=== PATIENT | male | born 1960 | race Caucasian/White ===

== ENCOUNTER 2019-10-07 18:49 | Emergency (ER) | payer MEDICAID, OTHER ==
[~2019-10-07] VITALS: Ht 185.4 cm; Wt 92.3 kg
--- NOTE | 2019-10-07 21:21 | NUR ---
PT WITH FAMILY AT BEDSIDE. LABS ORDERED AND VASCULAR US ORDERED.
--- NOTE | 2019-10-07 21:35 | NUR ---
PT PLACED IN GOWN, VSS.
[2019-10-07 21:46] LABS: D-DIMER 2.08 MG/L FEU (0-0.50)
--- NOTE | 2019-10-07 22:36 | NUR ---
PT STILL WAITING FOR VASCULAR US. THEY WERE PAGED 1 HR AGO AND REPORTED TO BE IN ROUTE. 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
--- NOTE | 2019-10-07 22:57 | NUR ---
VASCULAR REPORTED TO NOW BE IN ROUTE TO HOSPITAL.
--- NOTE | 2019-10-07 23:13 | NUR ---
VASCULAR US TECH AT BEDSIDE. PT WITH HR 112, OTHERWISE VSS.
[2019-10-07 23:14] VITALS: BP 116/91
[2019-10-07] MEDS ORDERED: TRAM50TA2 PO (23:52)
== END 2019-10-08 00:10 | disposition home or self-care (01) ==
LOC: ER 18:53
DX: S96.811A Strain of other specified muscles and tendons at ankle and foot level, right foot, initial encounter (principal); I10 Essential (primary) hypertension; F17.200 Nicotine dependence, unspecified, uncomplicated; Z86.19 Personal history of other infectious and parasitic diseases; Z88.0 Allergy status to penicillin; Z79.899 Other long term (current) drug therapy; X50.1XXA Overexertion from prolonged static or awkward postures, initial encounter; Y93.89 Activity, other specified; Y92.89 Other specified places as the place of occurrence of the external cause; Y99.8 Other external cause status
CPT/HCPCS: 36415; 73610; 85379; 93971; 96374; 96375; 96376; 99284; J7030